=== PATIENT | male | born 1995 | race Asian ===

== ENCOUNTER 2019-05-08 02:31 | Emergency (ER) | payer SELFPAY, OTHER ==
[2019-05-08] MEDS: IBUPROFEN 800 MG TAB PO (03:28)
[2019-05-08] MEDS: ONDANSETRON (ODT) 4 MG TAB ODT (03:28)
== END 2019-05-08 04:30 | disposition home or self-care (01) ==
LOC: FTE 02:31
DX: J02.9 Acute pharyngitis, unspecified (principal); H66.92 Otitis media, unspecified, left ear
CPT/HCPCS: 99283